=== PATIENT | female | born 1970 | race Caucasian/White ===

== ENCOUNTER 2019-08-06 07:53 | Day surgery (SDC) | payer OTHER ==
[~2019-08-06] VITALS: Ht 157.5 cm; Wt 56.2 kg
--- NOTE | 2019-08-06 10:00 | NUR ---
08/06/19 1000 Sheets,Chen 0950 PT ARRIVED TO PACU, RESP EVEN AND UNOLABORED. O2 SAT 100%, O2 DECREASED TO RA. PT ASLEEP.
--- NOTE | 2019-08-06 11:24 | NUR ---
PATIENT HAS 100 ML YELLOW EMESIS. PATIENT INSISTS ON GOING HOME STATING "I JUST NEED TO SLEEP." PATIENT DRESSES SELF IN PRESENCE OF SPOUSE AND TRANSFERS HERSELF TO WHEELCHAIR. DISCHARGE INSTRUCTIONS ARE GIVEN AND BOTH PATIENT AND SPOUSE VERBALIZE UNDERSTANDING.
--- NOTE | 2019-08-06 16:56 | OR ---
[facility] [address], [place] [address] Signed DATE OF OPERATION: 08/06/2019 SURGEON: Harris Beckett MD PREOPERATIVE DIAGNOSES: 1. Maternal grandmother with colon cancer in her 70s. 2. Diverticulitis surgery at age 5 (1974). POSTOPERATIVE DIAGNOSES: 1. 4 mm polyp, proximal transverse colon. 2. Minimal external hemorrhoids. PROCEDURE: Colonoscopy with hot biopsy. ESTIMATED BLOOD LOSS: None. INDICATIONS: Usha is a 49-year-old female, asked to see me for initial colonoscopy at age 49. She explained that her maternal grandmother had colon cancer in her 70s. She has no lower GI complaints. Of course, she has never had a previous colonoscopy. At age 5 back in 1974, she did have some type of diverticulitis surgery. I suspect that may have been a Meckel's diverticulum. In the office, I gave Usha a pamphlet on colonoscopy. We looked at that together in detail. She understands the nature of the test along with the risks including, but not limited to gas, bloating, crampy abdominal pain, bleeding, perforation requiring surgery, and missed diagnosis. She also understands the need for IV conscious sedation. She had expressed understanding and wished to proceed. PROCEDURE NOTE: Usha was taken into our endoscopy suite and placed in the left lateral decubitus position. She was given IV sedation with 6 mg of Versed and 150 mcg of fentanyl. A digital rectal exam was performed. She did have a small anterior external hemorrhoid. She had good sphincter tone. The adult colonoscope was then introduced and advanced under direct visualization of camera. Usha is quite thin at 5 feet 3 inches, 124 pounds with a body mass index of 22. Consequently, it took some time to push the camera through her colon and straighten it out. We gave additional sedation as we went. Eventually, we came into the cecum. We could easily see the appendiceal orifice and the ileocecal valve. Her prep was quite good. The scope was slowly withdrawn. We took pictures throughout for photodocumentation. She had what appeared to be a polypoid Electronically Signed By: HARRIS BECKETT MD 08/06/19 1656 PATIENT NAME: USHA CHOI OPERATIVE REPORT DATE OF : 68 REPORT #: [id number] PHYSICIAN: HARRIS BECKETT MD PCP: PENNIE CALVILLO PA-C REPORT IS CONFIDENTIAL AND NOT TO BE RELEASED WITHOUT AUTHORIZATION [facility] [address], [place] [address] Signed lesion in the proximal transverse colon. We removed it easily with hot biopsy forceps. Otherwise, no diverticulosis. The rectum was unremarkable. Upon retroflexion of the scope, she really has minimal if any internal hemorrhoid tissue. After this, the gas was suctioned out and colonoscope removed. Usha tolerated the procedure quite well. RECOMMENDATIONS: I will see Usha back in my office in 7 to 14 days to review her results. She should consider having a colonoscopy every 5 years due to her family history. Harris Beckett MD ALB/MODL /[id number] cc: MD Harris Holloway MD Jacqueline Brown, PA Copies: CAROLINA DOSS MD,HARRIS Lara MD ~ Electronically Signed By: HARRIS BECKETT MD 08/06/19 1656 PATIENT NAME: USHA CHOI OPERATIVE REPORT DATE OF : 68 REPORT #: [id number] PHYSICIAN: HARRIS BECKETT MD PCP: PENNIE CALVILLO PA-C REPORT IS CONFIDENTIAL AND NOT TO BE RELEASED WITHOUT AUTHORIZATION
--- NOTE | 2019-08-07 14:03 | PATH ---
[facility] [address] [address] Signed SPECIMEN(S): A TRANSVERSE PROXIMAL SPECIMEN SOURCE: A. TRANSVERSE PROXIMAL CLINICAL HISTORY: Divertic screening. Postop: Colon polyp, external hemorrhoid. MICROSCOPIC DESCRIPTION: Histologic sections of all submitted blocks are examined by light microscopy. These findings, together with the gross examination, support the pathologic diagnosis. FINAL PATHOLOGIC DIAGNOSIS: Mucosa, transverse proximal colon, biopsy: - Hyperplastic polyp. LJA:cml:C2NR GROSS DESCRIPTION: The specimen, labeled "DG, proximal transverse polyp," is received in formalin and consists of a 0.2 cm greatest dimension irregular velasquez-white soft tissue fragment. The specimen is entirely submitted in cassette (A1). AR (under the direct supervision of a pathologist) The Gross Description was prepared using a voice recognition system. The report was reviewed for accuracy; however, sound-alike word errors, addition and/or deletions may occur. If there is any question about this report, please contact Client Services. PERFORMING LABORATORY: The technical component was performed by [employer] [employer], [address] [place] [address] (Mutuel Clerk: Octavia Marina MD; CLIA# [id number]). Professional interpretation was performed by [facility], [address] [address] (Mutuel Clerk: John Ruiz MD; CLIA# [id number]). Diagnostician: John Ruiz MD Pathologist Electronically Signed 08/07/2019 PATIENT NAME: USHA CHOI PATHOLOGY DATE OF : 68 REPORT #: [id number] PHYSICIAN: MARK ANTHONY NATH PCP: PENNIE CALVILLO PA-C REPORT IS CONFIDENTIAL AND NOT TO BE RELEASED WITHOUT AUTHORIZATION [address] [address] Signed Copies: ~ PATIENT NAME: USHA CHOI PATHOLOGY DATE OF : 68 REPORT #: [id number] PHYSICIAN: MARK ANTHONY PATHOLOGY PCP: PENNIE CALVILLO PA-C REPORT IS CONFIDENTIAL AND NOT TO BE RELEASED WITHOUT AUTHORIZATION
== END 2019-08-06 11:32 | disposition home or self-care (01) ==
LOC: OPS 07:53 → DS 07:57 → OPS 09:00
PROVIDERS: Colon & Rectal Surgery
PROC: 0DBL8ZZ Excision of Transverse Colon, Via Natural or Artificial Opening Endoscopic (ICD-10-PCS; principal; 2019-08-06 09:00)
DX: Z12.11 Encounter for screening for malignant neoplasm of colon (principal); K63.5 Polyp of colon; K64.4 Residual hemorrhoidal skin tags; Z87.19 Personal history of other diseases of the digestive system; Z80.0 Family history of malignant neoplasm of digestive organs
CPT/HCPCS: 99153; G0500; J2250; J3010; J7120